=== PATIENT | male | born 1980 | race Caucasian/White ===

== ENCOUNTER 2017-05-31 12:57 | Emergency (ER) | payer OTHER ==
[2017-05-31] MEDS: ONDANSETRON HCL/PF 2 MG/ML VIAL IV ONE ×2 (13:02→13:55)
[2017-05-31] MEDS ORDERED: NORMAL SALINE 1,000 ML IV ONE (13:06)
[2017-05-31] MEDS ORDERED: ONDANSETRON HCL/PF 2 MG/ML VIAL IV ONE (13:06)
--- NOTE | 2017-05-31 13:17 | ERNOTE ---
Abdominal HPI - Narrative Date of Service: 05/31/17 - General Chief Complaint: Abdominal Pain Time Seen by Provider: 05/31/17 13:06 Source: patient Exam Limitations: no limitations - Immun/Allergies/Home Medications Immunizatons: IMMUNIZATION HX Immunizations Up to Date Yes History of Influenza Vaccine Yes Hx Pneumococcal Vaccination Yes Allergies/Adverse Reactions: Allergies No Known Allergies Allergy (Verified 05/31/17 13:14) Home Medications: HOME MEDICATIONS NK [No Home Medication] 05/31/17 [Last Taken Unknown] - History of Present Illness Narrative: Pt. comes in with c/o nausea and vomiting and abdominal pain for 4hours. Pt. states that he came home from work this morning and was vomiting. Pt. states that he came home and took a shower because it usually makes him feel better but states that it did not help and he then went outside to get into the car and became very weak and had to lay on the ground. Pt. then was brought to the ER by his where he got out of the car and was so weak he layed on the ground outside of the ER again. Review of Systems - Review of Systems Constitutional: Present: weakness. Absent: fever, chills, fatigue, malaise EYE: Present: no symptoms reported ENT: Present: no symptoms reported Respiratory: Present: no symptoms reported. Absent: shortness of breath, cough , wheezing Cardiology: Present: no symptoms reported. Absent: chest pain, palpitations, edema Gastrointestinal/Abdominal: Present: nausea, vomiting, abdominal pain. Absent: diarrhea Genitourinary: Present: no symptoms reported Musculoskeletal: Present: no symptoms reported. Absent: back pain, joint pain Skin: Present: no symptoms reported. Absent: rash, change in color Neurological: Present: no symptoms reported. Absent: headache, dizziness/light- headedness, numbness, tingling Endocrine: Present: no symptoms reported All Other Systems: All systems neg except as marked - Patient's Past Medical History Patient History - Medical: Kidney stone Patient History - Cardiac/Respiratory: No pertinent hx Patient History - Cancer: No Hx of Cancer Patient History - Surgical Procedures: Appendectomy, Other Patient History - Other: None - Family History Mother Family History - Medical: Anxiety, Depression Family History - Cardiac/Respiratory: No pertinent hx Family History - Cancer: No pertinent family hx - Social History Living Situations: home Abuse History: No History of abuse Psych History: No pertinent hx Does anyone smoke in the home?: Yes Smoking Status: Current every day smoker Do you dip or chew tobacco: Yes Alcohol Use: none Drug Use: none, marijuana - Immunizations Immunizations Up to Date: Yes Hx Pneumococcal Vaccination: Yes History of Influenza Vaccine: Yes Physical Exam - Physical Exam General Appearance: Present: wd/wn, alert, anxious Head Exam: Present: normal inspection, no evidence of injury Eye Exam: Normal inspection: bilateral, PERRL: bilateral, EOMI: bilateral Ears, Nose, Throat: Present: normal ENT inspection, normal pharynx Neck: Present: normal inspection, nontender. Absent: lymphadenopathy (R), lymphadenopathy (L) Respiratory: Present: no respiratory distress, normal breath sounds, no accessory muscle use, chest nontender, lungs clear Cardiovascular/Chest: Present: no murmur, normal peripheral pulses, tachycardia Gastrointestinal/Abdominal: Present: normal bowel sounds, nondistended, soft, no organomegaly, tenderness - diffuse Back Exam: Present: normal inspection, normal range of motion, no CVA tenderness , no vertebral tenderness Extremity Exam: Present: normal inspection, non-tender, normal range of motion, no edema Neurological Exam: Present: alert, oriented, no motor/sensory deficits, other - anxious Skin Exam: Present: normal color, warm/dry. Absent: pallor, skin rash ED Progress - Date and Time Seen: Date and Time: 05/31/17 14:39 Pt. likely with gastritis related to gastroenteritis vs cyclic vomiting syndrome. Pt. refusing to give urine sample but denies drug use but feel that given pt. has had this happen before and showering improves symptoms it is most likely cyclic vomiting. Pt. left AMA due to not wanting to give urine so will discharge with Cyclic vomiting diagnosis but pt. refusing to wait to sign paperwork. - Results and Orders Patient's Lab Results:: I have reviewed the patient's lab results. - Vital Signs Patient's Vital Signs:: I have reviewed the patient's vital signs. Vital Signs: Vital Signs 05/31/17 13:02 Temperature 36.3 C L Pulse Rate 68 Respiratory 16 Rate Blood Pressure 147/90 O2 Sat by Pulse 100 Oximetry - Progress/Reassessment Chief Complaint: Abdominal Pain Departure - Departure Clinical Impression: Cyclic vomiting syndrome Qualifiers: Vomiting Intractability: non-intractable Nausea presence: with nausea Qualified Code(s): G43.A0 - Cyclical vomiting, not intractable Disposition: Home self-care Condition: Good Instructions: Cyclic Vomiting Syndrome, Pediatric Additional Instructions: Please follow up with primary provider berenice.
--- OUTSIDE RECORDS SUMMARY | 2017-05-31 13:19 | XMS REPORT | Clinical Summary ---
:1980 Author Organization [facility] [place] [address] Care Team Providers Name Role Phone Unavailable Primary Care Provider Unavailable Source Comments This disclosure is being made pursuant to the [employer] program and maynot contain all information available regarding this patient.[facility] Allergies Not on File Current Medications Be aware that medications may not be up to date as of this document. Alwaysverify current medications with the patient. Not on file Active Problems Not on file Social History Tobacco Use Types Packs/Day Years Used Date Never Assessed Sex Assigned at Date Recorded Not on file Last Filed Vital Signs Not on file Plan of Treatment Health Maintenance Due Date Last Done Comments Retired-Pertussis Vaccine Adult 1998 Retired-Tetanus Vaccine Adult 1998 Retired-INFLUENZA VACCINE 06/23/2015 Results Not on filefrom Last 3 Months
[2017-05-31] MEDS ORDERED: KETOROLAC TROMETHAMINE 30 MG/ML VIAL IV ONE (13:23)
[2017-05-31 13:25] LABS: Hematocrit 47.6 % (42.0-52.0); Hemoglobin 16.7 gm/dL (13.5-18.0); Mean Cell Volume 84.5 fl (78-100); Mean Corpuscular Hemoglobin 29.7 pg (27-31); Mean Corpuscular Hgb Conc 35.1 g/dl (32-36); Mean Platelet Volume 9.1 fl (6.0-9.5); Neutrophil # 13.3 K/mm3 (1.3-6.0); Platelet Count 331 K/mm3 (150-450); Red Blood Count 5.63 M/mm3 (4.7-6.0); Red Cell Distribution Width 13.2 % (11.5-14.0); White Blood Count 17.5 K/mm3 (4.0-10.5)
[2017-05-31 13:34] LABS: Amylase * 64 U/L (25-115); Lipase 165 U/L (73-393)
[2017-05-31 13:37] LABS: Albumin * 4.8 gm/dl (3.4-5.0); Anion Gap 20.1 mmol/L (6.8-13.8); BUN/Creatinine Ratio 9.6 (9.0-21.6); Bilirubin, Total 0.7 mg/dL (0.0-1.1); Ca. Corrected For Albumin 8.8 mg/dL (8.4-10.2); Calcium * 9.8 mg/dL (7.9-10.9); Carbon Dioxide 21.4 mmol/L (24-32.6); Potassium 3.5 mmol/L (3.4-4.6); Total Protein 8.6 gm/dL (6.2-8.2)
[2017-05-31] MEDS ORDERED: KETOROLAC TROMETHAMINE 30 MG/ML VIAL ONE (13:47)
[2017-05-31] MEDS ORDERED: ONDANSETRON HCL/PF 2 MG/ML VIAL ONE (13:54)
[2017-05-31 13:55] LABS: Hemoglobin A1C 5.3 % (4.00-6.0)
[2017-05-31 13:57] VITALS: BP 143/80
== END 2017-05-31 14:53 | disposition home or self-care (01) ==
LOC: ER 12:57
DX: G43.A0 Cyclical vomiting, in migraine, not intractable (principal); F17.200 Nicotine dependence, unspecified, uncomplicated; Z53.29 Procedure and treatment not carried out because of patient's decision for other reasons
CPT/HCPCS: 36415; 74020; 80053; 82150; 83036; 83690; 85025; 96374; 96375; 99284; J2405

== ENCOUNTER 2017-06-02 23:14 | Emergency (ER) | payer OTHER ==
--- OUTSIDE RECORDS SUMMARY | 2017-06-02 23:50 | XMS REPORT | Clinical Summary ---
:1980 Author Organization [facility] [place] [address] Care Team Providers Name Role Phone Unavailable Primary Care Provider Unavailable Source Comments This disclosure is being made pursuant to the [employer] program and maynot contain all information available regarding this patient.[facility] Allergies Not on File Current Medications Be [...]
[2017-06-03] MEDS ORDERED: MORPHINE SULFATE 4 MG/ML SYRG IV ONE (00:06)
[2017-06-03] MEDS ORDERED: LORazepam 2 MG/ML DISP.SYRIN IV ONE (00:06)
[2017-06-03] MEDS ORDERED: NORMAL SALINE 1,000 ML IV ONE (00:06)
--- NOTE | 2017-06-03 00:11 | ERNOTE ---
Medical Problem HPI - Narrative Date of Service: 06/03/17 - General Chief Complaint: Nausea/Vomiting Time Seen by Provider: 06/02/17 23:40 Source: patient, family, old records Exam Limitations: no limitations - Immun/Allergies/Home Medications Immunizations: IMMUNIZATION HX Immunizations Up to Date Yes History of Influenza Vaccine Yes Hx Pneumococcal Vaccination Yes Allergies/Adverse Reactions: Allergies No Known Allergies Allergy (Verified 06/02/17 23:27) Home Medications: HOME MEDICATIONS NK [No Home Medication] 05/31/17 [Last Taken Unknown] - History of Present History Narrative: This is a 36-year-old male who claims to have been diagnosed with cyclic vomiting syndrome approximately 3 years ago. He does not know what is precipitating factors are. Patient states that since Monday he has been having frequent episodes of vomiting. He was actually seen here in the emergency department on Monday but he elected to not have a catheter placed for a urine sample and left AGAINST MEDICAL ADVICE. He returns today saying that he still has significant abdominal pain as well as frequent vomiting. He has noted no blood in his emesis. He is still having bowel movements. He is still passing gas. The patient does not notice any significant amount of vomitus, this is more retching. He denies any recent trauma. He says this is exactly like previous episodes of cyclic vomiting for him. Not have a family doctor. His who is taking care of an 8-week-old infant is very apologetic saying "I've been trying to find him a doctor but I just haven't been able to" Review of Systems - Review of Systems Constitutional: Present: recent illness, fatigue EYE: Present: no symptoms reported ENT: Present: no symptoms reported Respiratory: Present: no symptoms reported Cardiology: Present: no symptoms reported Gastrointestinal/Abdominal: Present: See HPI, nausea, vomiting, abdominal pain Genitourinary: Present: no symptoms reported Musculoskeletal: Present: no symptoms reported Skin: Present: no symptoms reported Neurological: Present: no symptoms reported Endocrine: Present: no symptoms reported Hematologic/Lymphatic: Present: no symptoms reported Psych: Present: no symptoms reported All Other Systems: All systems neg except as marked - Patient's Past Medical History Patient History - Medical: Kidney stone Patient History - Cardiac/Respiratory: No pertinent hx Patient History - Cancer: No Hx of Cancer Patient History - Surgical Procedures: Appendectomy, Other Patient History - Other: None - Family History Mother Family History - Medical: Anxiety, Depression Family History - Cardiac/Respiratory: No pertinent hx Family History - Cancer: No pertinent family hx - Social History Living Situations: home Abuse History: No History of abuse Psych History: No pertinent hx Does anyone smoke in the home?: Yes Alcohol Use: none Drug Use: none, marijuana - Immunizations Immunizations Up to Date: Yes Hx Pneumococcal Vaccination: Yes History of Influenza Vaccine: Yes Physical Exam - Physical Exam General Appearance: Present: wd/wn, alert, no apparent distress, other - patient is laying on caught with his eyes closed in a darkened room. Head Exam: Present: normal inspection, no evidence of injury Eye Exam: Normal inspection: bilateral, PERRL: bilateral, EOMI: bilateral Ears, Nose, Throat: Present: normal ENT inspection Neck: Present: normal inspection, nontender Respiratory: Present: no respiratory distress, normal breath sounds, lungs clear Cardiovascular/Chest: Present: regular rate, rhythm, no murmur Gastrointestinal/Abdominal: Present: normal bowel sounds, nontender, nondistended, soft Back Exam: Present: normal inspection, normal range of motion Extremity Exam: Present: normal inspection, non-tender, normal range of motion Neurological Exam: Present: alert, oriented, normal mood/affect Skin Exam: Present: normal color, warm/dry Lymphatic Exam: Present: no adenopathy ED Progress - Results and Orders Patient's Lab Results:: I have reviewed the patient's lab results. - Vital Signs Patient's Vital Signs:: I have reviewed the patient's vital signs. Vital Signs: Vital Signs 06/02/17 23:22 Temperature 36.9 C Pulse Rate 73 Respiratory 18 Rate Blood Pressure 135/85 O2 Sat by Pulse 100 Oximetry - X-Ray X-Ray #1 X-Ray: abdomen Interpretation: Interp. by me X-ray Comments: Nonspecific nonobstructive bowel gas pattern - Progress/Reassessment Chief Complaint: Nausea/Vomiting Progress:: Pain free at discharge Progress Note-Subjective: 06/03/17 01:47 Patient has had no further vomiting since he received the Ativan and morphine. Plan - Plan Plan: The patient should see an internal medicine doctor for follow-up. Departure - Departure Clinical Impression: Vomiting Disposition: Home self-care Condition: Stable Instructions: Nausea, Adult Additional Instructions: As we discussed, your symptoms are concerning for something called cyclic vomiting syndrome. This is not something which can be diagnosed here in the emergency department. I do not see any emergency medical conditions which would require U to be admitted to the hospital or seen emergently by a surgeon. I want you to call your family doctor and set up a follow-up appointment. We have given a list of doctors that you can try. Certainly if you develop recurrent severe symptoms or anything new or worrisome you should return to the ER. Typically patients with cyclic vomiting syndrome will have a prolonged period without symptoms once the acute flareup is taken care of. Therefore I have hope that your symptoms will stay gone now that they are gone
[2017-06-03 00:17] LABS: Hematocrit 45.2 % (42.0-52.0); Hemoglobin 16.5 gm/dL (13.5-18.0); Mean Cell Volume 81.9 fl (78-100); Mean Corpuscular Hemoglobin 29.9 pg (27-31); Mean Corpuscular Hgb Conc 36.5 g/dl (32-36); Neutrophil # 10.1 K/mm3 (1.3-6.0); Neutrophil % 81.1 % (42-75.0); Platelet Count 320 K/mm3 (150-450); Red Blood Count 5.52 M/mm3 (4.7-6.0); Red Cell Distribution Width 12.7 % (11.5-14.0); White Blood Count 12.4 K/mm3 (4.0-10.5)
[2017-06-03 00:32] LABS: Albumin * 4.5 gm/dl (3.4-5.0); Anion Gap 15.2 mmol/L (6.8-13.8); BUN/Creatinine Ratio 17.2 (9.0-21.6); Ca. Corrected For Albumin 8.9 mg/dL (8.4-10.2); Calcium * 9.6 mg/dL (7.9-10.9); Carbon Dioxide 25.9 mmol/L (24-32.6); Potassium 3.1 mmol/L (3.4-4.6); Total Protein 8.1 gm/dL (6.2-8.2)
[2017-06-03] MEDS ORDERED: MORPHINE SULFATE 4 MG/ML SYRG ONE (00:54)
[2017-06-03] MEDS ORDERED: LORazepam 2 MG/ML DISP.SYRIN ONE (00:54)
[2017-06-03 01:05] LABS: Urine Bilirubin 1 mg/dl (NEGATIVE); Urine Ketone Large mg/dL (NEGATIVE); Urine Nitrite Negative (NEGATIVE); Urine Protein 15 mg/dL (NEGATIVE); Urine Specific Gravity 1.015 SP.GR. (1.005-1.030); Urine Urobilinogen Normal (NORMAL); Urine pH 8.5 pH (5.0-7.0)
[2017-06-03 01:18] LABS: Urine Amorphous Sediment Many - 3+ (NONE-FEW); Urine Appearance Cloudy; Urine Bacteria None Seen; Urine Blood 5 /ul (NEGATIVE); Urine Color Brown; Urine RBC None Seen /hpf (0-5); Urine WBC None Seen /hpf (0-5)
[2017-06-03 01:27] LABS: Cocaine Ur Negative (NEGATIVE); Urine Barbiturate Negative (NEGATIVE); Urine Benzodiazepines Negative (NEGATIVE); Urine Opiates Negative (NEGATIVE); Urine PCP Negative (NEGATIVE)
[2017-06-03 01:38] LABS: Urine THC Positive (NEGATIVE)
[2017-06-03] MEDS ORDERED: ONDANSETRON HCL/PF 2 MG/ML VIAL IV ONE (02:06)
[2017-06-03] MEDS ORDERED: ONDANSETRON HCL/PF 2 MG/ML VIAL ONE (02:06)
[2017-06-03 05:10] VITALS: BP 127/70
== END 2017-06-03 02:57 | disposition home or self-care (01) ==
LOC: ER 23:14
DX: R11.10 Vomiting, unspecified (principal); Z87.442 Personal history of urinary calculi
CPT/HCPCS: 36415; 74020; 80053; 80307; 81001; 83690; 85025; 96374; 96375; 99283; J2405

== ENCOUNTER 2017-07-07 17:04 | Emergency (ER) | payer OTHER ==
[2017-07-07] MEDS ORDERED: FAMOTIDINE 10 MG/ML VIAL IV ONE ×2 (17:39→17:44)
[2017-07-07] MEDS ORDERED: ONDANSETRON HCL/PF 2 MG/ML VIAL IV ONE (17:39)
[2017-07-07] MEDS ORDERED: NORMAL SALINE 1,000 ML IV PRN (17:39)
[2017-07-07] MEDS ORDERED: ONDANSETRON HCL/PF 2 MG/ML VIAL ONE (17:44)
[2017-07-07 17:56] LABS: Hematocrit 45.4 % (42.0-52.0); Hemoglobin 16.3 gm/dL (13.5-18.0); Mean Cell Volume 83.5 fl (78-100); Mean Corpuscular Hgb Conc 35.9 g/dl (32-36); Neutrophil % 86.3 % (42-75.0); Platelet Count 306 K/mm3 (150-450); Red Blood Count 5.44 M/mm3 (4.7-6.0); Red Cell Distribution Width 13.3 % (11.5-14.0)
[2017-07-07 18:10] LABS: Albumin * 4.6 gm/dl (3.4-5.0); Anion Gap 19.5 mmol/L (6.8-13.8); Bilirubin, Total 0.5 mg/dL (0.0-1.1); Ca. Corrected For Albumin 8.7 mg/dL (8.4-10.2); Calcium * 9.5 mg/dL (7.9-10.9); Carbon Dioxide 22.1 mmol/L (24-32.6); Potassium 3.6 mmol/L (3.4-4.6); Total Protein 8.5 gm/dL (6.2-8.2)
[2017-07-07 18:34] LABS: Amylase * 34 U/L (25-115); Lipase 86 U/L (73-393)
--- NOTE | 2017-07-07 18:37 | ERNOTE ---
Medical Problem HPI - General Chief Complaint: Nausea/Vomiting Time Seen by Provider: 07/07/17 17:35 Source: patient Exam Limitations: no limitations - Immun/Allergies/Home Medications Immunizations: IMMUNIZATION HX Immunizations Up to Date Yes History of Influenza Vaccine Yes Hx Pneumococcal Vaccination Yes Allergies/Adverse Reactions: Allergies No Known Allergies Allergy (Verified 07/07/17 17:40) Home Medications: HOME MEDICATIONS Ondansetron [Zofran Odt] 4 mg PO Q6H PRN #20 tab 07/07/17 [Last Taken Unknown] - History of Present History Narrative: Patient started having vomiting this morning. He states that he has a history of cyclical vomiting. He has not been able to keep any food or liquids down today and he has been dry heaving. Denies any use of alcohol or cannabis. He denies any fevers chills diarrhea or constipation. Review of Systems - Review of Systems Constitutional: Present: no symptoms reported EYE: Present: no symptoms reported ENT: Present: no symptoms reported Respiratory: Present: no symptoms reported Cardiology: Present: no symptoms reported Gastrointestinal/Abdominal: Present: See HPI Genitourinary: Present: no symptoms reported Musculoskeletal: Present: no symptoms reported Skin: Present: no symptoms reported - Patient's Past Medical History Patient History - Medical: Kidney stone Patient History - Cardiac/Respiratory: No pertinent hx Patient History - Cancer: No Hx of Cancer Patient History - Surgical Procedures: Appendectomy, Other Patient History - Other: None - Family History Mother Family History - Medical: Anxiety, Depression Family History - Cardiac/Respiratory: No pertinent hx Family History - Cancer: No pertinent family hx - Social History Living Situations: home Abuse History: No History of abuse Psych History: No pertinent hx Does anyone smoke in the home?: Yes Alcohol Use: none Drug Use: none, marijuana - Immunizations Immunizations Up to Date: Yes Hx Pneumococcal Vaccination: Yes History of Influenza Vaccine: Yes Physical Exam - Physical Exam General Appearance: Present: wd/wn, alert, no apparent distress, other - patient is nauseated and is actively vomiting in the room Respiratory: Present: no respiratory distress, normal breath sounds, no accessory muscle use, chest nontender, lungs clear Cardiovascular/Chest: Present: regular rate, rhythm, no murmur, normal peripheral pulses Gastrointestinal/Abdominal: Present: normal bowel sounds, nontender, nondistended, soft, no organomegaly Extremity Exam: Present: normal inspection, normal range of motion ED Progress - Results and Orders Patient's Lab Results:: I have reviewed the patient's lab results. - Vital Signs Patient's Vital Signs:: I have reviewed the patient's vital signs. Vital Signs: Vital Signs 07/07/17 17:35 Temperature 37.1 C Pulse Rate 72 Respiratory 20 Rate Blood Pressure 149/101 O2 Sat by Pulse 99 Oximetry - Progress/Reassessment Chief Complaint: Nausea/Vomiting Plan - Plan Plan: Patient appears to have vomiting without any other signs of gastroenteritis, his white count is slightly elevated I believe he slightly dehydrated he felt better after a liter of fluids and 4 mg of Zofran Departure - Departure Clinical Impression: Vomiting Qualifiers: Vomiting type: unspecified Vomiting Intractability: non-intractable Nausea presence: with nausea Qualified Code(s): R11.2 - Nausea with vomiting, unspecified Disposition: Home self-care Condition: Good Instructions: Nausea, Adult Referrals: Alexandr Marcelo MD [Primary Care Provider] - Prescriptions: Ondansetron [Zofran Odt] 4 mg PO Q6H PRN #20 tab PRN Reason: Nausea
[2017-07-07 19:01] VITALS: BP 138/90
== END 2017-07-07 19:00 | disposition home or self-care (01) ==
LOC: ER 17:04
DX: R11.2 Nausea with vomiting, unspecified (principal); Z87.442 Personal history of urinary calculi
CPT/HCPCS: 36415; 80053; 82150; 83690; 85025; 96374; 96375; 99283; J2405

== ENCOUNTER 2017-09-06 09:27 | Emergency (ER) | payer OTHER ==
[2017-09-06] MEDS ORDERED: PROMETHAZINE HCL 25 MG in DEXTROSE 5 % IN WATER 50 ML IV ONE ×2 (09:57)
[2017-09-06] MEDS ORDERED: diphenhydrAMINE HCL 50 MG/ML VIAL IV ONE (09:57)
[2017-09-06] MEDS ORDERED: NORMAL SALINE 1,000 ML IV ONE (09:57)
[2017-09-06] MEDS ORDERED: diphenhydrAMINE HCL 50 MG/ML VIAL ONE (10:05)
--- NOTE | 2017-09-06 10:09 | ERNOTE ---
Medical Problem HPI - Narrative Date of Service: 09/06/17 - General Chief Complaint: Nausea/Vomiting Time Seen by Provider: 09/06/17 09:56 Source: patient Exam Limitations: no limitations - Immun/Allergies/Home Medications Immunizations: IMMUNIZATION HX Immunizations Up to Date Yes History of Influenza Vaccine No Hx Pneumococcal Vaccination Yes Allergies/Adverse Reactions: Allergies mushroom Adverse Reaction (Verified 09/06/17 09:49) Home Medications: HOME MEDICATIONS Prochlorperazine [Compazine] 25 mg RC QID PRN #20 supp.rect 09/06/17 [Last Taken Unknown] - History of Present History Narrative: Pt. comes in with c/o generalized abd pain and vomiting for 3 hours. Pt. has a hx of cyclic vomiting syndrome but denies any marijuana use. Pt. denies any aggravating factors but states that hot showers improve the symptoms. Pt. denies any discrete abd. pain, fever, diarrhea, SOB, or CP. Review of Systems - Review of Systems Constitutional: Present: no symptoms reported. Absent: recent illness, fever, chills, weakness, fatigue, malaise EYE: Present: no symptoms reported ENT: Present: no symptoms reported Respiratory: Present: no symptoms reported. Absent: shortness of breath, cough , wheezing Cardiology: Present: no symptoms reported. Absent: chest pain, palpitations, edema Gastrointestinal/Abdominal: Present: nausea, vomiting, abdominal pain. Absent: diarrhea, constipation Genitourinary: Present: no symptoms reported. Absent: frequency, pain, dysuria , decreased urinary output Musculoskeletal: Present: no symptoms reported. Absent: back pain, joint pain Skin: Present: no symptoms reported. Absent: rash, lesions, lumps, change in color, change in hair/nails Neurological: Present: no symptoms reported. Absent: headache, dizziness/light- headedness, numbness, tingling Endocrine: Present: no symptoms reported All Other Systems: All systems neg except as marked - Patient's Past Medical History Patient History - Medical: Kidney stone, Other - Cyclic vomiting syndrome Patient History - Cardiac/Respiratory: No pertinent hx Patient History - Cancer: No Hx of Cancer Patient History - Surgical Procedures: Appendectomy, Other Patient History - Other: None - Family History Mother Family History - Medical: Anxiety, Depression Family History - Cardiac/Respiratory: No pertinent hx Family History - Cancer: No pertinent family hx - Social History Abuse History: No History of abuse Psych History: No pertinent hx Smoking Status: Current every day smoker Have you smoked in the past 12 months: Yes - Immunizations Immunizations Up to Date: Yes Hx Pneumococcal Vaccination: Yes History of Influenza Vaccine: No Physical Exam - Physical Exam General Appearance: Present: wd/wn, alert, no apparent distress Head Exam: Present: normal inspection, no evidence of injury Eye Exam: Normal inspection: bilateral, PERRL: bilateral, EOMI: bilateral Ears, Nose, Throat: Present: normal ENT inspection, normal pharynx Neck: Present: normal inspection, nontender. Absent: lymphadenopathy (R), lymphadenopathy (L) Respiratory: Present: no respiratory distress, normal breath sounds, no accessory muscle use, chest nontender, lungs clear. Absent: rales, rhonchi, wheezing Cardiovascular/Chest: Present: regular rate, rhythm, no murmur, normal peripheral pulses Gastrointestinal/Abdominal: Present: normal bowel sounds, nontender, nondistended, soft, no organomegaly Back Exam: Present: normal inspection Extremity Exam: Present: normal inspection, non-tender, normal range of motion, no edema Neurological Exam: Present: alert, oriented, normal mood/affect, no motor/ sensory deficits Skin Exam: Present: normal color, warm/dry. Absent: pallor, skin rash ED Progress - Vital Signs Patient's Vital Signs:: I have reviewed the patient's vital signs. Vital Signs: Vital Signs 09/06/17 09:47 Temperature 34.6 C L Pulse Rate 58 L Respiratory 14 Rate Blood Pressure 139/91 O2 Sat by Pulse 100 Oximetry - Progress/Reassessment Chief Complaint: Nausea/Vomiting Progress:: Improved Plan - Plan Plan: Cyclic vomiting syndrome: Thorazine worked the best for symptoms feel that thorazine is the most appropriate medication for future symptoms. Departure Clinical Impression: Dehydration Cyclic vomiting syndrome Qualifiers: Vomiting Intractability: intractable Nausea presence: with nausea Qualified Code(s): G43.A1 - Cyclical vomiting, intractable - Departure Disposition: Home self-care Condition: Good Instructions: Cyclic Vomiting Syndrome, Pediatric Additional Instructions: Please follow up with primary provider in 2-3 days. Please use compazine suppositories for intractable vomiting. Referrals: Alexandr Marcelo MD [Primary Care Provider] - Prescriptions: Prochlorperazine [Compazine] 25 mg RC QID PRN #20 supp.rect PRN Reason: Vomiting
[2017-09-06] MEDS ORDERED: DICYCLOMINE HCL 10 MG/ML AMPUL IM ONE ×2 (10:59→11:04)
[2017-09-06] MEDS ORDERED: ONDANSETRON HCL/PF 2 MG/ML VIAL IV ONE (10:59)
[2017-09-06] MEDS ORDERED: ONDANSETRON HCL/PF 2 MG/ML VIAL ONE (11:04)
[2017-09-06] MEDS ORDERED: chlorproMAZINE HCL 10 MG in NORMAL SALINE 50 ML IV ONE (12:13)
[2017-09-06 13:05] VITALS: BP 156/87
== END 2017-09-06 13:45 | disposition home or self-care (01) ==
LOC: ER 09:27
DX: E86.0 Dehydration (principal); G43.A1 Cyclical vomiting, in migraine, intractable; Z87.442 Personal history of urinary calculi; F17.200 Nicotine dependence, unspecified, uncomplicated
CPT/HCPCS: 96361; 96372; 96374; 96375; 99284; J2405

== ENCOUNTER 2019-03-09 13:24 | Observation (INO) ==
--- NOTE | 2019-03-09 13:54 | ERNOTE ---
<Dimas Randle - Last Filed: 03/09/19 13:41> Abdominal HPI - General Chief Complaint: Nausea/Vomiting Time Seen by Provider: 03/09/19 13:40 Source: patient Exam Limitations: no limitations - Immun/Allergies/Home Medications Immunizatons: IMMUNIZATION HX Immunizations Up to Date Yes History of Influenza Vaccine No Hx Pneumococcal Vaccination No Allergies/Adverse Reactions: Allergies mushroom Adverse Reaction (Verified 03/07/19 13:08) poison leroy Adverse Reaction (Mild, Uncoded 03/07/19 08:49) RASH Home Medications: HOME MEDICATIONS chlorpromazine 25 mg/mL injection solution 10 mg IM ONCE #0.4 ml 03/07/19 [Last Taken Unknown] prochlorperazine maleate 10 mg tablet 10 mg PO Q6H 03/07/19 [Last Taken Unknown] topiramate 25 mg sprinkle capsule 25 mg PO BID #60 cap 03/07/19 [Last Taken Unknown] - History of Present Illness Narrative: Patient has a long-standing history of marijuana use and gets cyclical vomiting likely secondary to that. He presents today with more of the vomiting-like syndrome and feels perhaps somewhat dehydrated. Medical History (Updated 03/07/19 @ 13:09 by Mert Cardona LPN) Vomiting (Resolved) Onset Date: Unknown Multiple kidney stones (Resolved) Onset Date: Unknown Ear drum perforation (Resolved) Onset Date: ~1995 right ear Surgical History: Surgical History (Updated 03/07/19 @ 13:10 by Mert Cardona LPN) History of appendectomy Onset Date: ~1988 History of ear surgery Onset Date: ~1995 right ear due to ruptured ear drum History of myringotomy Onset Date: 01/13/[address] Bradley History of nephrolithotomy with removal of calculi Onset Date: ~1996 Family History: Family History (Updated 03/07/19 @ 13:11 by Mert Cardona LPN) Father Cancer Mother Anxiety Social History: Preferred Language Slovak Smoking Status Current every day smoker Smoking packs per day 0.5 Abuse History No History of abuse Psych History No pertinent hx (Last Updated 03/07/19 @ 13:13 by Mert Cardona LPN) No Social History Section defined Departure Clinical Impression: Hyponatremia, Dehydration Intractable vomiting Qualifiers: Vomiting type: cyclical vomiting Nausea presence: with nausea Qualified Code(s): G43.A1 - Cyclical vomiting, intractable - Departure Disposition: Still a patient Condition: Good Referrals: Alexandr Marcelo MD [Primary Care Provider] - <Linda Holm - Last Filed: 03/09/19 15:40> Abdominal HPI - Narrative Date of Service: 03/09/19 - General Source: family - Immun/Allergies/Home Medications Immunizatons: IMMUNIZATION HX Immunizations Up to Date Yes History of Influenza Vaccine No Hx Pneumococcal Vaccination No - History of Present Illness Narrative: 38 yr old male with hx of chronic cyclic vomiting, GERD and marijuana abuse presents with complaints of persistent nausea and vomiting. He has struggled with cyclic vomiting for the past 5 years, however the past two weeks he has been worse. States he was in the ER here on Monday and followed up with his PCP on . Reports emesis x 10 today. Did have some diarrhea, but none the past two days. Denies any acute abdominal pain, just reports "sore from throwing up". Denies fever. States unable to keep "anything down". Complains of weakness. Date (Duration): 03/09/19 Time (Timing): 14:08 Timing: getting worse Quality: aching - general abdominal Activities at Onset: none Modifying Factors - (Improves): Present: other - nothing Modifying Factors - (Worsens): Present: lying down Associated Symptoms: Present: nausea, vomiting, loss of appetite Prior Treatment: Present: recently seen - ER on Monday Clinic on Review of Systems - Review of Systems Constitutional: Present: weakness, weight loss - States has lost 5 lbs this week . Absent: fever EYE: Present: no symptoms reported ENT: Present: no symptoms reported Respiratory: Present: no symptoms reported Cardiology: Present: no symptoms reported Gastrointestinal/Abdominal: Present: nausea, vomiting, eating less, drinking less. Absent: abdominal pain Genitourinary: Present: decreased urinary output. Absent: frequency, pain, dysuria, hematuria Musculoskeletal: Present: no symptoms reported Skin: Present: no symptoms reported Neurological: Present: no symptoms reported Endocrine: Present: no symptoms reported Hematologic/Lymphatic: Present: no symptoms reported Psych: Present: no symptoms reported Medical History (Updated 03/07/19 @ 13:09 by Mert Cardona LPN) Vomiting (Resolved) Onset Date: Unknown Multiple kidney stones (Resolved) Onset Date: Unknown Ear drum perforation (Resolved) Onset Date: ~1995 right ear Surgical History: Surgical History (Updated 03/07/19 @ 13:10 by Mert Cardona LPN) History of appendectomy Onset Date: ~1988 History of ear surgery Onset Date: ~1995 right ear due to ruptured ear drum History of myringotomy Onset Date: 01/13/18 bilateral Kirk History of nephrolithotomy with removal of calculi Onset Date: ~1996 Family History: Family History (Updated 03/07/19 @ 13:11 by Mert Cardona LPN) Father Cancer Mother Anxiety Social History: Preferred Language Slovak Smoking Status Current every day smoker Have you smoked in the past 12 Yes months Smoking packs per day 0.5 Abuse History No History of abuse Psych History No pertinent hx Alcohol Use other Drug Use marijuana (Last Updated 03/07/19 @ 13:13 by Mert Cardona LPN) No Social History Section defined Physical Exam - Physical Exam General Appearance: Present: wd/wn, alert, no apparent distress - appears weak, holding onto his stomach, dry heaving Head Exam: Present: normal inspection, no evidence of injury Eye Exam: Normal inspection: bilateral, PERRL: bilateral, EOMI: bilateral Ears, Nose, Throat: Present: normal ENT inspection, normal pharynx, dry mucous membranes - slight Neck: Present: normal inspection Respiratory: Present: no respiratory distress, normal breath sounds, no accessory muscle use, lungs clear Cardiovascular/Chest: Present: regular rate, rhythm, no murmur, normal peripheral pulses, tachycardia Gastrointestinal/Abdominal: Present: normal bowel sounds, nondistended, soft, t enderness - Mild general . Absent: McBurney sign, Bright sign Back Exam: Present: normal inspection, no CVA tenderness Extremity Exam: Present: normal inspection, normal range of motion, no edema Neurological Exam: Present: alert, oriented, normal mood/affect, no motor/sensory deficits Skin Exam: Present: normal color, warm/dry Progress - Results and Orders Patient's Lab Results:: I have reviewed the patient's lab results. - CBC - WBC 10.3, Hgb 17.5, Hct 49.6, Plt 35.6 CMP - Sodium 123, Potassium 3.5, Chloride 89, BUN 32, Cr 1.15, Glucose 93, Calcium 9.7, AST 30, ALT 28, Alk phos 85, Amylase 50, Lipase 123 UA - Dark yellow in color, urine protein 30, Ketones - large , bilirubin - 3, blood 25, Specific gravity ^ 1.25 urine drug screen - positive for marijuana - Vital Signs Patient's Vital Signs:: I have reviewed the patient's vital signs. Vital Signs: Vital Signs 03/09/19 13:44 Temperature 36.7 C Pulse Rate 119 H Respiratory Rate 14 Blood Pressure 122/94 H O2 Sat by Pulse Oximetry 98 - X-Ray X-Ray #1 X-Ray: abdomen - Radiologist report - Non-obstructive bowel pattern - Progress/Reassessment Progress:: Improved Progress Note-Subjective: 03/09/19 15:20 Test results reviewed with the patient and . I compared today's lab results to the results from his ER visit on Monday. On 03/05/19 : Sodium was 135, BUN 10 and Cr 1.09 Today's Sodium was 123, BUN 32 and Cr 1.15 03/09/19 15:24 CT scan of abd/pelvis on 03/05/19 revealed non-distended, non-inflamed appearance of gallbladder. Possible sludeg vs stones. Non - specific bowel wall thickening. 03/09/19 15:[address] Strange who graciously agreed to accept him for Observation admission for IV fluids, recheck lab work and further work up. Plan - Plan Plan: Admit for Observation
[2019-03-09] MEDS ORDERED: ONDANSETRON HCL/PF 2 MG/ML VIAL IV ONE (14:05)
[2019-03-09] MEDS ORDERED: NORMAL SALINE 1,000 ML IV ONE (14:07)
[2019-03-09 14:47] LABS: Hematocrit 49.6 % (42.0-52.0); Hemoglobin 17.5 gm/dL (13.5-18.0); Mean Cell Volume 83.9 fl (78-100); Mean Corpuscular Hemoglobin 29.6 pg (27-31); Mean Corpuscular Hgb Conc 35.3 g/dl (32-36); Mean Platelet Volume 8.9 fl (8-11.3); Neutrophil # 6.1 K/mm3 (1.3-6.0); Neutrophil % 59.5 % (42-75.0); Platelet Count 356 K/mm3 (150-450); Red Blood Count 5.91 M/mm3 (4.7-6.0); Red Cell Distribution Width 13.3 % (11.5-14.0); White Blood Count 10.3 K/mm3 (4.0-10.5)
[2019-03-09 14:52] LABS: Albumin * 4.4 gm/dl (3.4-5.0); Anion Gap 17.3 mmol/L (6.8-13.8); BUN/Creatinine Ratio 27.8 (9.0-21.6); Bilirubin, Total 1.2 mg/dL (0.0-1.1); Ca. Corrected For Albumin 9.1 mg/dL (8.4-10.2); Calcium * 9.7 mg/dL (7.9-10.9); Carbon Dioxide 20.2 mmol/L (24-32.6); Potassium 3.5 mmol/L (3.4-4.6); Total Protein 8.9 gm/dL (6.2-8.2)
[2019-03-09 15:12] LABS: Urine Bilirubin 3 mg/dl (NEGATIVE); Urine Blood 25 /ul (NEGATIVE); Urine Ketone Large mg/dL (NEGATIVE); Urine Nitrite Negative (NEGATIVE); Urine Protein 30 mg/dL (NEGATIVE); Urine Specific Gravity 1.025 SP.GR. (1.005-1.030); Urine Urobilinogen Normal (NORMAL)
[2019-03-09 15:19] LABS: Urine Appearance Slightly Cloudy (CLEAR); Urine Bacteria None Seen; Urine Color Dark Yellow; Urine Fine Granular Cast 0-5 /LPF; Urine Mucus Few - 1+; Urine RBC None Seen /hpf (0-5); Urine WBC 0-5 /hpf (0-5)
[2019-03-09 15:25] LABS: Cocaine Ur Negative (NEGATIVE); Urine Barbiturate Negative (NEGATIVE); Urine Benzodiazepines Negative (NEGATIVE); Urine Opiates Negative (NEGATIVE); Urine PCP Negative (NEGATIVE)
[2019-03-09 15:26] LABS: Urine THC Positive (NEGATIVE)
[2019-03-09] MEDS: NORMAL SALINE 1,000 ML IV PRN ×2 (15:40→23:37)
[2019-03-09] MEDS ORDERED: ONDANSETRON 8 MG TAB.RAPDIS PO PRN (17:30)
--- NOTE | 2019-03-09 17:49 | HP ---
Chief Complaint - Chief Complaint Date of Service: 03/09/19 Time of Service: 17:41 Chief Complaint: Intractable vomiting past 3 days History of Present Illness: Miles Olmos is a 38-year-old male patient of Dr. Brooks who became ill 3 days ago at least. His told me he had not had any fluids or food for about 3 days and actually has not eaten much of anything for the past week. He has a history of cyclical vomiting syndrome. I presume he would be dehydrated and suggested that they come to the emergency room which they did. He was seen in the ER and given IV fluids and antiemetics and admitted. His electrolytes show sodium is low at 123 from enteric loss. Other time he arrived here on general medical floor he is feeling a lot better and actually requested something to drink or have ice chips. He is now had 2 L of IV fluid and is feeling much improved. I will continue IV fluids through the night. I will recheck his electrolytes tomorrow morning. He will probably discharge tomorrow morning. Urine drug screen is negative except for THC. I talked to him about the relationship between THC and cyclical vomiting syndrome and suggested he discontinue its use which he has agreed to do. His last episode was 1 year ago. Medical History (Updated 03/09/19 @ 15:40 by MELISSA Mejia) Vomiting (Resolved) Onset Date: Unknown Multiple kidney stones (Resolved) Onset Date: Unknown Ear drum perforation (Resolved) Onset Date: ~1995 right ear Surgical History: Surgical History (Updated 03/07/19 @ 13:10 by Mert Carodna LPN) History of appendectomy Onset Date: ~1988 History of ear surgery Onset Date: ~1995 right ear due to ruptured ear drum History of myringotomy Onset Date: 01/13/[address] Bradley History of nephrolithotomy with removal of calculi Onset Date: ~1996 Family History: Family History (Updated 03/07/19 @ 13:11 by Mert Cardona LPN) Father Cancer Mother Anxiety Social History: Patient Lives/Resources With Spouse Utilized Preferred Language Pashto Do you have any worship or No cultural preference? Smoking Status Current every day smoker Have you smoked in the past 12 Yes months Smoking packs per day 0.5 Abuse History No History of abuse Psych History No pertinent hx Alcohol Use other Drug Use marijuana (Last Updated 03/07/19 @ 13:13 by Mert Cardona LPN) No Social History Section defined Review Of Systems (GEN) - Review of Systems Generalized/Overall Review: Present: No Symptoms Reported, Malaise EENTM: Present: No Symptoms Reported Respiratory: Present: No Symptoms Reported Cardiac: Present: No Symptoms Reported Abdominal: Present: Nausea, Vomiting Genitourinary: Present: No Symptoms Reported Musculoskeletal: Present: No Symptoms Reported Neurological: Present: No Symptoms Reported Skin: Present: No Symptoms Reported Endocrine: Present: No Symptoms Reported Immunizations: IMMUNIZATION HX Immunizations Up to Date Yes History of Influenza Vaccine No Hx Pneumococcal Vaccination No Allergies/Adverse Reactions: Allergies Allergy/AdvReac Type Severity Reaction Status Date / Time mushroom AdvReac Verified 03/07/19 13:08 poison leryo AdvReac Mild RASH Uncoded 03/07/19 08:49 Home Medications: HOME MEDICATIONS prochlorperazine maleate 10 mg tablet 10 mg PO Q6H 03/07/19 [Last Taken Unknown] topiramate 25 mg sprinkle capsule 25 mg PO BID #60 cap 03/07/19 [Last Taken Unknown] Exam - Exam Vital Signs: Vital Signs - Last Taken Temp 36.8 C 03/09/19 16:45 Pulse 100 03/09/19 16:45 Resp 16 03/09/19 16:45 BP 111/96 H 03/09/19 16:45 Pulse Ox 100 03/09/19 16:45 Constitutional: Present: Alert, Oriented x3, Cooperative, Well developed, Well nourished, No distress ENT Exam: Present: normal ENT inspection, hearing grossly normal, pharynx normal, TMs normal Eye Exam: bilateral eye: normal inspection, PERRL, EOMI Neck: Present: non-tender, full range of motion Back Exam: Present: normal inspection, no CVA tenderness, no vertebral tenderness Breasts: Present: Exam deferred Respiratory: Present: chest non-tender, lungs clear, normal breath sounds, no respiratory distress Cardiovascular/Chest: Present: normal peripheral pulses, regular rate, rhythm, no chest tenderness, no edema, no gallop, no JVD, no murmur, no rub Peripheral Pulses: carotid (R): 2+, carotid (L): 2+, radial (R): 2+, radial (L): 2+ Abdomen: Present: Normal bowel sounds, soft, tender - In the midepigastrium /Rectal: Present: Exam deferred Extremity: Present: normal range of motion, non-tender, normal inspection, no pedal edema, no calf tenderness, normal capillary refill Skin Exam: Present: normal color, warm/dry, no cyanosis Lymphatic: Present: no adenopathy Neurologic: Present: 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 tested, normal cerebellar test, no motor/sensory deficits, alert, normal mood/affect, oriented x 3 Appearance: Present: appropriate appearance, appropriate insight, neat, no memory impairment Eye contact: Present: cooperative, good eye contact, normal speech Thoughts: Present: normal thought pattern, no apparent hallucination Diagnostic Studies: Abnormal Lab Results 03/09/19 03/09/19 03/09/19 Range/Units 14:15 14:15 14:57 Immature Gran % (Auto) 0.50 H (0.001-0.429) % Immature Gran # (Auto) 0.05 H (0.000-0.0310) K/mm3 Monocytes % 11.2 H (0.0-9) % Neutrophils # 6.1 H (1.3-6.0) K/mm3 Monocytes # 1.2 H (0.0-1.0) k/mm3 Sodium 123 L (132-142) mmol/L Plasma Sodium 123 L (130-142) mmol/L Chloride 89 L (97-106) mmol/L Carbon Dioxide 20.2 L (24-32.6) mmol/L Anion Gap 17.3 H (6.8-13.8) mmol/L BUN 32 H D (6-23) mg/dL BUN/Creatinine Ratio 27.8 H (9.0-21.6) Total Bilirubin 1.2 H (0.0-1.1) mg/dL Total Protein 8.9 H (6.2-8.2) gm/dL Urine Protein 30 H (NEGATIVE) mg/dL Urine Blood 25 H (NEGATIVE) /ul Urine Bilirubin 3 H (NEGATIVE) mg/dl Fine Granular Casts 0-5 H (NONE) /LPF Urine Mucus Few - 1+ H (NONE) Urine Marijuana (THC) (NEGATIVE) 03/09/19 Range/Units 14:57 Immature Gran % (Auto) (0.001-0.429) % Immature Gran # (Auto) (0.000-0.0310) K/mm3 Monocytes % (0.0-9) % Neutrophils # (1.3-6.0) K/mm3 Monocytes # (0.0-1.0) k/mm3 Sodium (132-142) mmol/L Plasma Sodium (130-142) mmol/L Chloride (97-106) mmol/L Carbon Dioxide (24-32.6) mmol/L Anion Gap (6.8-13.8) mmol/L BUN (6-23) mg/dL BUN/Creatinine Ratio (9.0-21.6) Total Bilirubin (0.0-1.1) mg/dL Total Protein (6.2-8.2) gm/dL Urine Protein (NEGATIVE) mg/dL Urine Blood (NEGATIVE) /ul Urine Bilirubin (NEGATIVE) mg/dl Fine Granular Casts (NONE) /LPF Urine Mucus (NONE) Urine Marijuana (THC) Positive H (NEGATIVE) Laboratory Results WBC 10.3 K/mm3 (4.0-10.5) 03/09/19 14:15 RBC 5.91 M/mm3 (4.7-6.0) 03/09/19 14:15 Hgb 17.5 gm/dL (13.5-18.0) 03/09/19 14:15 Hct 49.6 % (42.0-52.0) 03/09/19 14:15 MCV 83.9 fl (78-100) 03/09/19 14:15 MCH 29.6 pg (27-31) 03/09/19 14:15 MCHC 35.3 g/dl (32-36) 03/09/19 14:15 RDW 13.3 % (11.5-14.0) 03/09/19 14:15 Plt Count 356 K/mm3 (150-450) 03/09/19 14:15 MPV 8.9 fl (8-11.3) 03/09/19 14:15 Immature Gran % (Auto) 0.50 % (0.001-0.429) H 03/09/19 14:15 Immature Gran # (Auto) 0.05 K/mm3 (0.000-0.0310) H 03/09/19 14:15 59.5 % (42-75.0) 03/09/19 14:15 27.3 % (20-51) 03/09/19 14:15 11.2 % (0.0-9) H 03/09/19 14:15 0.7 % (0.0-3.0) 03/09/19 14:15 0.8 % (0.0-1.0) 03/09/19 14:15 Nucleated RBC % 0.0 k/mm3 (0-1) 03/09/19 14:15 6.1 K/mm3 (1.3-6.0) H 03/09/19 14:15 2.81 k/mm3 (1.5-3.5) 03/09/19 14:15 1.2 k/mm3 (0.0-1.0) H 03/09/19 14:15 0.1 k/mm3 (0.0-0.7) 03/09/19 14:15 Absolute Basophils 0.1 k/mm3 (0.0-0.1) 03/09/19 14:15 Sodium 123 mmol/L (132-142) L 03/09/19 14:15 123 mmol/L (130-142) L 03/09/19 14:15 Potassium 3.5 mmol/L (3.4-4.6) 03/09/19 14:15 Chloride 89 mmol/L (97-106) L 03/09/19 14:15 Carbon Dioxide 20.2 mmol/L (24-32.6) L 03/09/19 14:15 17.3 mmol/L (6.8-13.8) H 03/09/19 14:15 BUN 32 mg/dL (6-23) H D 03/09/19 14:15 1.15 mg/dL (0.4-1.4) 03/09/19 14:15 Est GFR (Non-Af Amer) 75 mL/min (60-130) 03/09/19 14:15 27.8 (9.0-21.6) H 03/09/19 14:15 93 mg/dL (70-110) 03/09/19 14:15 Calcium 9.7 mg/dL (7.9-10.9) 03/09/19 14:15 Calcium Adj for Albumin 9.1 mg/dL (8.4-10.2) 03/09/19 14:15 1.2 mg/dL (0.0-1.1) H 03/09/19 14:15 AST 30 U/L (0-48) 03/09/19 14:15 ALT 28 U/L (19-67) 03/09/19 14:15 85 U/L (50-170) 03/09/19 14:15 8.9 gm/dL (6.2-8.2) H 03/09/19 14:15 4.4 gm/dl (3.4-5.0) 03/09/19 14:15 Amylase 50 U/L (25-115) 03/09/19 14:15 123 U/L (73-393) 03/09/19 14:15 Dark yellow 03/09/19 14:57 Slightly cloudy (CLEAR) 03/09/19 14:57 6.0 pH (5.0-7.0) 03/09/19 14:57 Ur Specific Niles 1.025 SP.GR. (1.005-1.030) 03/09/19 14:57 30 mg/dL (NEGATIVE) H 03/09/19 14:57 Negative mg/dL (NEGATIVE) 03/09/19 14:57 Large mg/dL (NEGATIVE) 03/09/19 14:57 25 /ul (NEGATIVE) H 03/09/19 14:57 Negative (NEGATIVE) 03/09/19 14:57 3 mg/dl (NEGATIVE) H 03/09/19 14:57 Negative (NEGATIVE) 03/09/19 14:57 Prot Sulfosalicylic Acd 1+ mg/dL (0) 03/09/19 14:57 Normal EU/dl (NORMAL) 03/09/19 14:57 Ur Leukocyte Esterase Negative /ul (NEGATIVE) 03/09/19 14:57 None seen /hpf (0-5) 03/09/19 14:57 0-5 /hpf (0-5) 03/09/19 14:57 Ur Epithelial Cells 0-5 /hpf (0-5) 03/09/19 14:57 None seen (NONE) 03/09/19 14:57 Fine Granular Casts 0-5 /LPF (NONE) H 03/09/19 14:57 Few - 1+ (NONE) H 03/09/19 14:57 No culture indicated 03/09/19 14:57 Negative (NEGATIVE) 03/09/19 14:57 Negative (NEGATIVE) 03/09/19 14:57 Ur Phencyclidine Scrn Negative (NEGATIVE) 03/09/19 14:57 Urine Amphetamine Negative (NEGATIVE) 03/09/19 14:57 U Benzodiazepines Scrn Negative (NEGATIVE) 03/09/19 14:57 Negative (NEGATIVE) 03/09/19 14:57 Positive (NEGATIVE) H 03/09/19 14:57 Assessment/Plan - Narrative Narrative: 1. Continue IV normal saline through the night 2. Recheck CBC and BMP tomorrow morning 3. Start clear liquids this evening and progressed to regular diet tomorrow morning. - Assessment/Plan (1) Hyponatremia Problem: Acute (2) Vomiting Problem: Acute Qualifiers: Vomiting type: bilious vomiting Nausea presence: with nausea Qualified Code(s): R11.14 - Bilious vomiting (3) Cyclic vomiting syndrome Problem: Acute Qualifiers: Vomiting Intractability: intractable Nausea presence: with nausea Qualified Code(s): G43.A1 - Cyclical vomiting, intractable
[2019-03-10 06:15] LABS: Hematocrit 46.4 % (42.0-52.0); Hemoglobin 15.7 gm/dL (13.5-18.0); Mean Cell Volume 87.1 fl (78-100); Mean Corpuscular Hemoglobin 29.5 pg (27-31); Mean Corpuscular Hgb Conc 33.8 g/dl (32-36); Mean Platelet Volume 8.6 fl (8-11.3); Platelet Count 322 K/mm3 (150-450); Red Blood Count 5.33 M/mm3 (4.7-6.0); Red Cell Distribution Width 13.4 % (11.5-14.0); White Blood Count 13.3 K/mm3 (4.0-10.5)
[2019-03-10 06:24] LABS: Total Cells Counted 100
[2019-03-10 06:44] LABS: Albumin * 3.8 gm/dl (3.4-5.0); Anion Gap 12.7 mmol/L (6.8-13.8); BUN/Creatinine Ratio 16.3 (9.0-21.6); Bilirubin, Total 1.1 mg/dL (0.0-1.1); Ca. Corrected For Albumin 8.4 mg/dL (8.4-10.2); Calcium * 8.6 mg/dL (7.9-10.9); Carbon Dioxide 27.8 mmol/L (24-32.6); Potassium 3.5 mmol/L (3.4-4.6); Total Protein 7.7 gm/dL (6.2-8.2)
[2019-03-10 06:51] LABS: Atypical (Reactive) Lymph 3 % (0-2); Eosinophil 2 % (0-3); Lymphocyte 38 % (20-51); Monocyte 6 % (0-9); Neutrophil 51 % (42-75); Neutrophil # 6.8 K/mm3 (1.3-6.0); Platelet Estimate Normal (NORMAL); RBC Morphology Normal (NORMAL)
[2019-03-10] MEDS: NORMAL SALINE 1,000 ML IV PRN ×2 (06:51→16:04)
[2019-03-10] MEDS ORDERED: ORPHENADRINE CITRATE 30 MG/ML VIAL IV PRN (09:13)
[2019-03-10] MEDS: METOCLOPRAMIDE HCL 5 MG/ML VIAL IV PRN ×2 (09:29→21:30)
--- NOTE | 2019-03-10 10:56 | PN ---
Subjective - Date and Time Seen Date: 03/10/19 Time: 08:30 Subjective Narrative: Miles had an uneventful night and felt well when he got up this morning. He was advanced to a regular diet this morning and ate all of his breakfast. He then got up to shower and became nauseous and started vomiting. Denies having abdominal muscle pain from all the retching. He does not feel like there is any visceral pain however. Therefore his discharge will be delayed until after he eats lunch. If he keeps that down okay then I may discharge him this afternoon. I have given him Reglan 10 mg IV push, Norflex 10 mg IV push, and ondansetron 8 mg. Objective - Review of Systems Generalized/Overall Review: Reports: No Symptoms Reported EENTM: Reports: No Symptoms Reported Respiratory: Reports: No Symptoms Reported Cardiac: Reports: No Symptoms Reported Abdominal: Reports: Nausea, Vomiting, Abdominal Pain Genitourinary Symptoms: Reports: No Symptoms Reported Musculoskeletal Complaints: Reports: No Symptoms Reported Neurological: Reports: No Symptoms Reported Skin: Reports: No Symptoms Reported Endocrine: Reports: No Symptoms Reported - Vitals Vitals: Last Vital Signs Temp 36.4 C 03/10/19 06:40 Pulse 92 03/10/19 00:30 Resp 16 03/10/19 06:40 BP 138/97 H 03/10/19 06:40 Pulse Ox 99 03/10/19 06:40 - Abnormal Lab Findings Abnormal Lab Findings: Abnormal Lab Results 03/09/19 03/09/19 03/09/19 Range/Units 14:15 14:15 14:57 WBC (4.0-10.5) K/mm3 Immature Gran % (Auto) 0.50 H (0.001-0.429) % Immature Gran # (Auto) 0.05 H (0.000-0.0310) K/mm3 Monocytes % 11.2 H (0.0-9) % Neutrophils # 6.1 H (1.3-6.0) K/mm3 Neutrophils # (Manual) (1.3-6.0) K/mm3 Lymphocytes # (Manual) (1.5-3.5) k/mm3 Monocytes # 1.2 H (0.0-1.0) k/mm3 Atypic/Reactive Lymphs (0-2) % Sodium 123 L (132-142) mmol/L Plasma Sodium 123 L (130-142) mmol/L Chloride 89 L (97-106) mmol/L Carbon Dioxide 20.2 L (24-32.6) mmol/L Anion Gap 17.3 H (6.8-13.8) mmol/L BUN 32 H D (6-23) mg/dL BUN/Creatinine Ratio 27.8 H (9.0-21.6) Total Bilirubin 1.2 H (0.0-1.1) mg/dL Total Protein 8.9 H (6.2-8.2) gm/dL Urine Protein 30 H (NEGATIVE) mg/dL Urine Blood 25 H (NEGATIVE) /ul Urine Bilirubin 3 H (NEGATIVE) mg/dl Fine Granular Casts 0-5 H (NONE) /LPF Urine Mucus Few - 1+ H (NONE) Urine Marijuana (THC) (NEGATIVE) 03/09/19 03/10/19 Range/Units 14:57 06:00 WBC 13.3 H D (4.0-10.5) K/mm3 Immature Gran % (Auto) (0.001-0.429) % Immature Gran # (Auto) (0.000-0.0310) K/mm3 Monocytes % (0.0-9) % Neutrophils # (1.3-6.0) K/mm3 Neutrophils # (Manual) 6.8 H (1.3-6.0) K/mm3 Lymphocytes # (Manual) 5.1 H (1.5-3.5) k/mm3 Monocytes # (0.0-1.0) k/mm3 Atypic/Reactive Lymphs 3 H (0-2) % Sodium (132-142) mmol/L Plasma Sodium (130-142) mmol/L Chloride (97-106) mmol/L Carbon Dioxide (24-32.6) mmol/L Anion Gap (6.8-13.8) mmol/L BUN (6-23) mg/dL BUN/Creatinine Ratio (9.0-21.6) Total Bilirubin (0.0-1.1) mg/dL Total Protein (6.2-8.2) gm/dL Urine Protein (NEGATIVE) mg/dL Urine Blood (NEGATIVE) /ul Urine Bilirubin (NEGATIVE) mg/dl Fine Granular Casts (NONE) /LPF Urine Mucus (NONE) Urine Marijuana (THC) Positive H (NEGATIVE) - EKG/Xray Findings XRAY: abdomen Interpretation: Reviewed by me - Exam Constitutional: Present: Alert, Oriented x3, Cooperative, Well developed, Well nourished, Mild distress ENT Exam: Present: normal ENT inspection, hearing grossly normal, pharynx normal, TMs normal, hard of hearing Neck: Present: non-tender, full range of motion, supple, normal inspection Breasts: Present: Exam deferred Respiratory: Present: chest non-tender, lungs clear, normal breath sounds, no respiratory distress, no accessory muscle use Cardiovascular/Chest: Present: normal peripheral pulses, regular rate, rhythm, no chest tenderness, no edema, no gallop, no JVD, no murmur, no rub Abdomen: Present: Normal bowel sounds, soft, nondistended, tender - Diffusely to palpation and it seems to be in the abdominal wall. He believes it is sore due to all of the vomiting he has been doing. 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 Clear liquid lunch 2. Reglan Norvasc given 3. Reassess this afternoon and possibly discharge - Problems/Diagnosis (1) Hyponatremia Problem: Acute (2) Vomiting Problem: Acute Qualifiers: Vomiting type: bilious vomiting Nausea presence: with nausea Qualified Code(s): R11.14 - Bilious vomiting (3) Cyclic vomiting syndrome Problem: Acute Qualifiers: Vomiting Intractability: intractable Nausea presence: with nausea Qualified Code(s): G43.A1 - Cyclical vomiting, intractable
[2019-03-10] MEDS ORDERED: PROCHLORPERAZINE EDISYLATE 5 MG/ML VIAL IV PRN (13:00)
[2019-03-11] MEDS: NORMAL SALINE 1,000 ML IV PRN (01:12)
[2019-03-11 10:52] VITALS: BP 149/89
[2019-03-11] MEDS ORDERED: NORMAL SALINE IJ ONE (12:15)
[2019-03-11] MEDS ORDERED: SINCALIDE IJ ONE (12:15)
--- NOTE | 2019-03-11 14:11 | DS ---
(1) Hyponatremia Problem: Acute (2) Vomiting Problem: Acute Qualifiers: Vomiting type: bilious vomiting Nausea presence: with nausea Qualified Code(s): R11.14 - Bilious vomiting (3) Cyclic vomiting syndrome Problem: Chronic Qualifiers: Vomiting Intractability: intractable Nausea presence: with nausea Aj lified Code(s): G43.A1 - Cyclical vomiting, intractable Description of Stay: Miles Olmos is a 38-year-old male who presented with chief complaint of intractable vomiting for 3 days prior to arrival. His stated he had not eaten in almost a week and that he could not keep fluids down. I talked to them on the phone and with that history suggested they come to the emergency room to be evaluated. On arrival his sodium was 121 and clinically was dehydrated. He was given several liters of IV fluids bolus and several antiemetics including Reglan, ondansetron, and promethazine. He needed continued IV fluids and anti-emetic management and so was admitted to observation status. He seemed to be much better on Monday morning tolerated clear liquids well and was up and around saying he had not felt this good in quite a long time. He then had a regular diet for lunch and began vomiting once again afterwards. He was complaining of abdominal pain that was diffuse and he thought mostly muscular in the abdominal wall from all the retching. I gave him Compazine, Reglan, and ondansetron. I made him n.p.o. until this morning and he tolerated clear liquids well. I did a abdominal ultrasound yesterday that was unremarkable. I did a HIDA scan today which also was normal. He carries the diagnosis of cyclic vomiting syndrome. I have suggested that he should see a student ministry pastor for chronic management of this problem. He is currently a patient of Dr.David Jorge Jesus MD. As I was preparing to go see him this afternoon at 2:00 to go over the HIDA scan results and recommended discharge medications the patient's nurse informed me that he had decided to sign out AGAINST MEDICAL ADVICE and had the left. Therefore, the results of his tests are not known to him at this point. I will go ahead and send some medicines for treating his nausea and vomiting. His disposition seems to be improved but he may start vomiting again at any time. I had discussed his marijuana smoking with him yesterday and advised him that there is seems to be a strong correlation between marijuana smoking and cyclical vomiting syndrome and strongly suggested that he quit which he said he would. But he was having nicotine withdrawal today and I think that is why he decided to leave [facility]. Procedures Performed: see notes below List Procedures: Abdominal ultrasound complete, HIDA scan with Kinevac. Results and Findings: Lab Pending Results 03/09/19 14:15: WBC 10.3, RBC 5.91, Hgb 17.5, Hct 49.6, MCV 83.9, MCH 29.6, MCHC 35.3, RDW 13.3, Plt Count 356, MPV 8.9, Immature Gran % (Auto) 0.50 H, Immature Gran # (Auto) 0.05 H, Neutrophils % 59.5, Lymphocytes % 27.3, Monocytes % 11.2 H, Eosinophils % 0.7, Basophils % 0.8, Nucleated RBC % 0.0, Neutrophils # 6.1 H, Lymphocytes # 2.81, Monocytes # 1.2 H, Eosinophils # 0.1, Absolute Basophils 0.1 03/09/19 14:15: Sodium 123 L, Plasma Sodium 123 L, Potassium 3.5, Chloride 89 L, Carbon Dioxide 20.2 L, Anion Gap 17.3 H, BUN 32 H D, Creatinine 1.15, Est GFR (Non-Af Amer) 75, BUN/Creatinine Ratio 27.8 H, Random Glucose 93, Calcium 9.7, Calcium Adj for Albumin 9.1, Total Bilirubin 1.2 H, AST 30, ALT 28, Alkaline Phosphatase 85, Total Protein 8.9 H, Albumin 4.4, Amylase 50, Lipase 123 03/09/19 14:57: Urine Color Dark yellow, Urine Appearance Slightly cloudy, Urine pH 6.0, Ur Specific [place] 1.025, Urine Protein 30 H, Urine Glucose (UA) Negative, Urine Ketones Large, Urine Blood 25 H, Urine Nitrate Negative, Urine Bilirubin 3 H, Urine Ictotest Negative, Prot Sulfosalicylic Acd 1+, Urine Urobilinogen Normal, Ur Leukocyte Esterase Negative, Urine RBC None seen, Urine WBC 0-5, Ur Epithelial Cells 0-5, Urine Bacteria None seen, Fine Granular Casts 0-5 H, Urine Mucus Few - 1+ H, Urine Culture Comments No culture indicated 03/09/19 14:57: Urine Opiates Screen Negative, Barbiturate Screen Negative, Ur Phencyclidine Scrn Negative, Urine Amphetamine Negative, U Benzodiazepines Scrn Negative, Urine Cocaine Screen Negative, Urine Marijuana (THC) Positive H 03/10/19 06:00: WBC 13.3 H D, RBC 5.33, Hgb 15.7, Hct 46.4, MCV 87.1, MCH 29.5, MCHC 33.8, RDW 13.4, Plt Count 322, MPV 8.6, Neutrophils % (Manual) 51, Lymphocytes % (Manual) 38, Monocytes % (Manual) 6, Eosinophils % (Manual) 2, Neutrophils # (Manual) 6.8 H, Lymphocytes # (Manual) 5.1 H, Monocytes # (Manual) 0.8, Eosinophils # (Manual) 0.3, Atypic/Reactive Lymphs 3 H, Platelet Estimate Normal, RBC Morphology Normal 03/10/19 06:00: Sodium 138, Plasma Sodium 138, Potassium 3.5, Chloride 101, Carb on Dioxide 27.8, Anion Gap 12.7, BUN 15 D, Creatinine 0.92, Est GFR (Non-Af Amer) 97 D, BUN/Creatinine Ratio 16.3, Random Glucose 100, Calcium 8.6, Calcium Adj for Albumin 8.4, Total Bilirubin 1.1, AST 25, ALT 25, Alkaline Phosphatase 72, Total Protein 7.7, Albumin 3.8 Discharge Location: Other - Left AMA although I had plan to discharge him to home this afternoon. Disposition: Home self-care Condition: Fair Discharge Activity: Activity as tolerated Discharge Diet: General/regular food Referrals: Alexandr Marcelo MD [Primary Care Provider] - Additional Patient Instructions (free text): 1. Stop marijuana usage 2. Stop smoking 3. Follow-up with Dr. Brooks 4. Recommend gastroenterology consultation Complete Home Medications List: Complete Home Medication List: Prochlorperazine Maleate [Compazine] 10 mg PO Q6H #20 tab 03/11/19 Topiramate [Topamax] 25 mg PO BID #60 cap 03/11/19
== END 2019-03-11 13:30 | disposition left against medical advice (07) ==
LOC: ER 13:24 → MS 13:24
PROVIDERS: ADMIT Family Medicine; ATTEND Allergy & Immunology
DX: E87.1 Hypo-osmolality and hyponatremia; G43.A1 Cyclical vomiting, in migraine, intractable; R11.14 Bilious vomiting
CPT/HCPCS: 36415; 74019; 74020; 76700; 78227; 80053; 80307; 81001; 82150; 83690; 85025; 96361; 96374; 96375; 99285; A9537; G0378; J2405